=== PATIENT | female | born 1940 | race Caucasian/White ===

== ENCOUNTER 2023-01-09 00:56 | Emergency (ER) | payer MEDICARE, SELFPAY ==
[2023-01-09] VITALS (55 sets, daily range): BP systolic 128–176; BP diastolic 76–108; PULSE 78–106; RESP 15–39; TEMP 36.7–38.3; O2SAT 93–96
--- NOTE | 2023-01-09 01:00 | ECG_ITS ---
The [facility] Test Date: 2023-01-09 Pat Name: BERNICE COOMBS Department: Room: - Gender: Female Student Success Counselor: : 1940 Requested By: [id number] Order Number: [id number] Reading MD: PRANEETH MCGRAW Measurements Intervals [place] Rate: 93 P: 55 [place]: 154 QRS: 32 QRSD: 142 T: 116 QT: 400 QTc: 451 Interpretive Statements 1100 Sinus rhythm 2550 Left bundle branch block 6120 Possible right atrial enlargement 6230 Left atrial enlargement 9150 abnormal ECG No previous ECG available for comparison Electronically Signed On 01-09-2023 7:07:56 EDT by PRANEETH MCGRAW
--- NOTE | 2023-01-09 01:14 | ED.WEAKNESS1 ---
HPI - Weakness General Chief complaint: Altered Mental Status Stated complaint: FEVER Time Seen by Provider: 01/09/23 01:00 Mode of arrival: ambulance Limitations: altered mental status History of Present Illness HPI Narrative: patient lives at home with her son. Tonight she was not able to get off the commode without help and then she was too weak to walk. No vomiting or diarrhea. Found to have low grade fever. No complaint of dyspnea or chest pain. Per Squad personnel they were informed that she is noncompliant with her home meds Complaint: Reports generalized weakness Related Data Allergies Allergy/AdvReac Type Severity Reaction Status Date / Time atorvastatin [From Lipitor] Allergy Unknown Verified 01/09/23 01:38 azithromycin [From Zithromax] Allergy Unknown Verified 01/09/23 01:38 Penicillins Allergy Unknown Verified 01/09/23 01:38 rosuvastatin [From Crestor] Allergy Unknown Verified 01/09/23 01:38 simvastatin [From Zocor] Allergy Unknown Verified 01/09/23 01:38 Sulfa (Sulfonamide Allergy Unknown Verified 01/09/23 01:38 Antibiotics) iv dye Allergy Unknown Uncoded 01/09/23 01:38 Review of Systems ROS Status of ROS 10 or more systems reviewed and unremarkable except as noted in history and below PFSH PFS Social History Smoking status: Never smoker Exam Constitutional Vital Signs, click to edit/add: Last Vital Signs Temp 100.9 F H 01/09/23 00:58 Pulse 96 H 01/09/23 03:10 Resp 27 H 01/09/23 03:10 BP 134/84 01/09/23 03:00 Pulse Ox 94 L 01/09/23 03:10 O2 Del Method Room Air 01/09/23 00:58 Common normals: no apparent distress, oriented x3 and alert Eye Common normals: EOMs intact bilaterally and conjunctivae normal Respiratory Common normals: normal respiratory effort, no retractions, no use of accessory muscles and clear to auscultation bilaterally Cardio Common normals: regular rate, regular rhythm, S1 normal heart sound and S2 normal heart sound GI Common normals: Normal to inspection, nondistended, normoactive bowel sounds present, soft to palpation and non-tender Extremity Common normals: normal to inspection Neuro Common normals: oriented x3, moves all extremities and no focal motor deficits Psych Appearance: grossly normal Course Vital Signs Vital signs: Vital Signs Temperature 100.9 F H 01/09/23 00:58 Pulse Rate 95 H 01/09/23 00:58 Respiratory Rate 25 H 01/09/23 00:58 Pulse Oximetry 93 L 01/09/23 00:58 Oxygen Delivery Method Room Air 01/09/23 00:58 Temperature 100.9 F H 01/09/23 00:58 Pulse Rate 96 H 01/09/23 03:10 Respiratory Rate 27 H 01/09/23 03:10 Blood Pressure 134/84 01/09/23 03:00 Pulse Oximetry 94 L 01/09/23 03:10 Oxygen Delivery Method Room Air 01/09/23 00:58 MDM - Weakness MDM Narrative Medical decision making narrative: patient resides at home with her son. Brought to the ER today for weakness. needed help getting off the commode and then was too weak to walk. Has a cough but is not short of breath. Has low grade fever. No focal weakness of her extremities or facial droop. EKG with NSR and LBBB. labs with mild elevation of troponin. COVID19 and Influenza are neg. CT chest performed as cxray with findings of possible mass. CT without acute cardiopulmonary findings. Did note nonspecific hypodense thyroid lesion that can be further evaluated with ultrasound. No clear etiology for her gen. weakness. She is also in need of cardiac consultation given her elevated Troponins Discussed with hospitalist at [facility] and patient is accepted in transfer Lab Data Labs: Lab Results 01/09/23 01/09/23 01/09/23 Range/Units 01:00 01:10 02:13 WBC 6.7 (4.0-11.0) 10^3/uL RBC 4.74 (4.20-5.40) 10^6/uL Hgb 13.8 (12.0-16.0) g/dL Hct 43.2 (36.0-48.0) % MCV 91.1 (81.0-99.0) fL MCH 29.1 (26.7-34.0) pg MCHC 31.9 (29.9-35.2) g/dL RDW 14.4 (11.0-15.0) % Plt Count 246 (150-450) 10^3/uL MPV 10.3 (9.5-13.5) fL Neut % (Auto) 80.7 H (43.0-75.0) % Lymph % (Auto) 9.6 L (20.5-60.0) % [place] % (Auto) 8.7 (1.7-12.0) % Eos % (Auto) 0.0 L (0.9-7.0) % Baso % (Auto) 0.6 (0.2-2.0) % Neut # (Auto) 5.4 (1.4-6.5) 10^3/uL Lymph # (Auto) 0.6 L (1.2-3.8) 10^3/uL Fleming # (Auto) 0.6 (0.3-0.8) 10^3/uL Eos # (Auto) 0.0 (0.0-0.7) 10^3/uL Baso # (Auto) 0.0 (0.0-0.1) 10^3/uL Abs Immat Gran (auto) 0.03 (0.00-0.03) 10^3/uL Imm/Tot Granulo (auto) 0.4 (0.0-0.5) % Sodium 138 (136-145) mmol/L Potassium 3.6 (3.5-5.1) mmol/L Chloride 100 (98-107) mmol/L Carbon Dioxide 27.4 (21.0-32.0) mmol/L Anion Gap 14.2 BUN 14.0 (7.0-18.0) mg/dL Creatinine 1.01 (0.55-1.02) mg/dL Est GFR ( Amer) >60 (>=60) Est GFR (Non-Af Amer) 52 L (>=60) BUN/Creatinine Ratio 13.9 Glucose 106 (74-106) mg/dL Lactate 1.8 (0.4-2.0) mmol/L Calcium 8.3 L (8.5-10.1) mg/dL Troponin I High Sens 59.0 H* (4.0-51.3) pg/mL Urine Color Lt. yellow (YELLOW) Urine Clarity Clear (CLEAR) Urine pH 6.5 (5.0-9.0) Ur Specific [place] 1.020 (1.005-1.025) Urine Protein 30 A (NEG/TRACE) mg/dL Urine Glucose (UA) Negative (NEGATIVE) mg/dL Urine Ketones 15 A (NEGATIVE) mg/dL Urine Occult Blood Moderate A (NEGATIVE) Urine Nitrite Negative (NEGATIVE) Urine Bilirubin Negative (NEGATIVE) Urine Urobilinogen 1.0 (0.2-1.0) EU/dL Ur Leukocyte Esterase Negative (NEGATIVE) Urine RBC 5-10 A (0-2) #/HPF Urine WBC 0-2 A (NONE SEEN) #/HPF Ur Squamous Epith Cells Few A (NONE/RARE) #/LPF Urine Crystals None seen (None Seen) #/HPF Urine Bacteria None seen (NONE SEEN) #/HPF Urine Casts None seen (NONE SEEN) #/LPF Urine Mucus Small A (NONE SEEN) Ur Culture Indicated? No SARS-CoV-2 (PCR) (NEGATIVE) Influenza Type A Ag Negative Influenza Type B Ag Negative 01/09/23 01/09/23 Range/Units 02:53 04:05 WBC (4.0-11.0) 10^3/uL RBC (4.20-5.40) 10^6/uL Hgb (12.0-16.0) g/dL Hct (36.0-48.0) % MCV (81.0-99.0) fL MCH (26.7-34.0) pg MCHC (29.9-35.2) g/dL RDW (11.0-15.0) % Plt Count (150-450) 10^3/uL MPV (9.5-13.5) fL Neut % (Auto) (43.0-75.0) % Lymph % (Auto) (20.5-60.0) % Fleming % (Auto) (1.7-12.0) % Eos % (Auto) (0.9-7.0) % Baso % (Auto) (0.2-2.0) % Neut # (Auto) (1.4-6.5) 10^3/uL Lymph # (Auto) (1.2-3.8) 10^3/uL Fleming # (Auto) (0.3-0.8) 10^3/uL Eos # (Auto) (0.0-0.7) 10^3/uL Baso # (Auto) (0.0-0.1) 10^3/uL Abs Immat Gran (auto) (0.00-0.03) 10^3/uL Imm/Tot Granulo (auto) (0.0-0.5) % Sodium (136-145) mmol/L Potassium (3.5-5.1) mmol/L Chloride (98-107) mmol/L Carbon Dioxide (21.0-32.0) mmol/L Anion Gap BUN (7.0-18.0) mg/dL Creatinine (0.55-1.02) mg/dL Est GFR ( Amer) (>=60) Est GFR (Non-Af Amer) (>=60) BUN/Creatinine Ratio Glucose (74-106) mg/dL Lactate (0.4-2.0) mmol/L Calcium (8.5-10.1) mg/dL Troponin I High Sens 60.0 H* (4.0-51.3) pg/mL Urine Color (YELLOW) Urine Clarity (CLEAR) Urine pH (5.0-9.0) Ur Specific [place] (1.005-1.025) Urine Protein (NEG/TRACE) mg/dL Urine Glucose (UA) (NEGATIVE) mg/dL Urine Ketones (NEGATIVE) mg/dL Urine Occult Blood (NEGATIVE) Urine Nitrite (NEGATIVE) Urine Bilirubin (NEGATIVE) Urine Urobilinogen (0.2-1.0) EU/dL Ur Leukocyte Esterase (NEGATIVE) Urine RBC (0-2) #/HPF Urine WBC (NONE SEEN) #/HPF Ur Squamous Epith Cells (NONE/RARE) #/LPF Urine Crystals (None Seen) #/HPF Urine Bacteria (NONE SEEN) #/HPF Urine Casts (NONE SEEN) #/LPF Urine Mucus (NONE SEEN) Ur Culture Indicated? SARS-CoV-2 (PCR) Negative (NEGATIVE) Influenza Type A Ag Influenza Type B Ag Discharge Plan Discharge Chief Complaint: Altered Mental Status Clinical Impression: Generalized weakness, Elevated troponin, Fever Referrals: Physician,Non-Staff, MD [Primary Care Provider] - 1 week
--- NOTE | 2023-01-09 01:16 | XR_ITS ---
The [address] [address] Patient Name: BERNICE COOMBS MRN: [id number] date: 1940 Sex: F Assigned Patient Location: ED.MAIN Current Patient Location: ED.MAIN Accession/Order Number: [id number] Exam Date: 01/09/2023 01:30 Report Date: 01/09/2023 01:59 At the request of: GLYNN YING Procedure: XR chest 1V EXAMINATION:XR chest 1V INDICATION:weakness COMPARISON:None TECHNIQUE:A single frontal view of the chest is submitted. FINDINGS: The cardiac silhouette is enlarged. There is accentuation of the mediastinal structures due to rotation of the chest. There is no obvious vascular congestion. There is nonspecific nodularity in the medial left lower lung field. A neoplastic process cannot entirely be excluded. There is no costophrenic angle blunting. XR/XR chest 1V IMPRESSION: Nonspecific nodularity in the medial left lower lung field. This could be better characterized with CT scan to exclude a neoplastic process. Electronically authenticated by: QUAN NICHOEL Date: 01/09/2023 01:59
[2023-01-09 01:27] LABS: Bilirubin Urine NEGATIVE (NEGATIVE); Blood Urine MODERATE (NEGATIVE); Clarity Urine CLEAR (CLEAR); Color Urine LT. YELLOW (YELLOW); Glucose Urine UA NEGATIVE (NEGATIVE); Ketones Urine 15 mg/dL (NEGATIVE); Leukocyte Esterase Urine NEGATIVE (NEGATIVE); Nitrite Urine NEGATIVE (NEGATIVE); Protein Urine 30 mg/dL (NEG/TRACE); pH Urine 6.5 (5.0-9.0)
[2023-01-09 01:38] LABS: Basophils Percent Auto 0.6 % (0.2-2.0); Hematocrit 43.2 % (36.0-48.0); Hemoglobin 13.8 g/dL (12.0-16.0); Immature Granulocytes Abs Auto 0.03 10^3/uL (0.00-0.03); Immature Granulocytes Pct Auto 0.4 % (0.0-0.5); Lymphocytes Absolute Auto 0.6 10^3/uL (1.2-3.8); Lymphocytes Percent Auto 9.6 % (20.5-60.0); Mean Corpuscular HGB Conc 31.9 g/dL (29.9-35.2); Mean Corpuscular Hemoglobin 29.1 pg (26.7-34.0); Mean Corpuscular Volume 91.1 fL (81.0-99.0); Mean Platelet Volume 10.3 fL (9.5-13.5); Monocytes Absolute Auto 0.6 10^3/uL (0.3-0.8); Monocytes Percent Auto 8.7 % (1.7-12.0); Neutrophils Absolute Auto 5.4 10^3/uL (1.4-6.5); Neutrophils Percent Auto 80.7 % (43.0-75.0); Platelet Count 246 10^3/uL (150-450); Red Blood Count 4.74 10^6/uL (4.20-5.40); Red Cell Distribution Width 14.4 % (11.0-15.0); White Blood Count 6.7 10^3/uL (4.0-11.0)
[2023-01-09 01:50] LABS: Urine Microscopic Indicated YES
[2023-01-09 01:54] LABS: Lactate/Lactic Acid 1.8 mmol/L (0.4-2.0)
[2023-01-09] MEDS: 0.9 % SODIUM CHLORIDE 1,000 ML 100 ML IV (01:58)
[2023-01-09 02:01] LABS: Bacteria Urine NONE SEEN #/HPF (NONE SEEN); Cast Seen? NONE SEEN #/LPF (NONE SEEN); Crystals Seen? None Seen #/HPF (None Seen); Mucus Urine SMALL (NONE SEEN); Squamous Epithelial Cell Urine FEW #/LPF (NONE/RARE); Urine Culture Indicated NO; WBC Urine 0-2 #/HPF (NONE SEEN)
[2023-01-09 02:14] LABS: Anion Gap 14.2; BUN Creatinine Ratio 13.9; Calcium 8.3 mg/dL (8.5-10.1); Carbon Dioxide 27.4 mmol/L (21.0-32.0); Chloride 100 mmol/L (98-107); Estimated GFR (African America >60 (>=60); Estimated GFR (Non-African Ame 52 (>=60); Glucose 106 mg/dL (74-106); Potassium 3.6 mmol/L (3.5-5.1); Sodium 138 mmol/L (136-145)
[2023-01-09 02:16] LABS: Adenovirus NOT DETECTED (NOT DETECTE); Bordetella parapertussis NOT DETECTED (NOT DETECTE); Coronavirus 229E NOT DETECTED (NOT DETECTE); Coronavirus HKU1 NOT DETECTED (NOT DETECTE); Coronavirus NL63 NOT DETECTED (NOT DETECTE); Coronavirus OC43 NOT DETECTED (NOT DETECTE); Human Metapneumovirus NOT DETECTED (NOT DETECTE); Human Rhinovirus/Enterovirus NOT DETECTED (NOT DETECTE); Influenza A NOT DETECTED (NOT DETECTE); Influenza B NOT DETECTED (NOT DETECTE); Mycoplasma pneumoniae NOT DETECTED (NOT DETECTE); Parainfluenza Virus 1 NOT DETECTED (NOT DETECTE); Parainfluenza Virus 2 NOT DETECTED (NOT DETECTE); Parainfluenza Virus 3 NOT DETECTED (NOT DETECTE); Respiratory Syncytial Virus NOT DETECTED (NOT DETECTE); SARS-CoV-2 NOT DETECTED (NOT DETECTE)
[2023-01-09 03:04] LABS: Influenza Virus A Antigen Negative; Influenza Virus B Antigen Negative; Internal Control Within Normal Limits
--- NOTE | 2023-01-09 03:13 | CT_ITS ---
The [address] [address] Patient Name: BERNICE COOMBS MRN: [id number] date: 1940 Sex: F Assigned Patient Location: ER Current Patient Location: Accession/Order Number: [id number] Exam Date: 01/09/2023 03:54 Report Date: 01/09/2023 05:12 At the request of: GLYNN YING Procedure: CT chest wo con EXAM: CT chest wo con HISTORY: lung mass . Confusion. Fever. Hypertension. COMPARISON: Chest x-ray, 01/09/2023. TECHNIQUE: Nonenhanced CT imaging the chest was performed with sagittal and coronal reconstructions. Dose reduction techniques were achieved by using automated exposure control and/or adjustment of mA and/or kV according to patient size and/or use of iterative reconstruction technique. FINDINGS: The exam is limited by the lack of contrast. The heart is mildly enlarged. There appears be a coronary artery stent in the LAD. Calcifications of the mitral valve annulus are noted. No pericardial effusion is seen. There are fairly prominent calcifications in the otherwise grossly unremarkable thoracic aorta and arch vessels. The thyroid gland is heterogeneous. There is a nonspecific 1.1 cm hypodense lesion in the posterior right thyroid lobe on image 14 of series 3. A 1.8 cm ovoid lesion cannot be excluded in the left thyroid lobe on image 16. No thoracic adenopathy is seen. Motion artifact degrades the lungs. There is mild dependent atelectasis in the posterior lower lobes. No pulmonary edema, acute infiltrate, pleural fluid or pneumothorax is seen. There is a 5 mm noncalcified nodule in the anterior segment of the right upper lobe on image 34 series 3. Mild basilar linear atelectasis or fibrotic scarring is noted. There is a fat-containing herniation of the medial left diaphragm. There is a 0.8 cm anterior subcapsular cyst in the medial left hepatic segment. The liver is otherwise unremarkable. Gas containing stones fill the gallbladder lumen with no CT findings of cholecystitis. Prominent atherosclerotic calcifications are noted. The nonenhanced upper abdomen is otherwise unremarkable. There is a mild upper thoracic levoscoliosis. Prominent degenerative changes are seen in the glenohumeral joints. No acute osseous abnormality or suspicious bony lesion is seen. CT/CT chest wo con IMPRESSION: 1. No acute cardiopulmonary findings. 2. Noncalcified 5 mm right upper lobe pulmonary nodule, nonspecific. Follow-up is recommended per Fleischner Society guidelines, as outlined below. 3. Nonspecific hypodense thyroid lobe lesions. Elective thyroid ultrasound could further evaluate. 4. Cholelithiasis. Fleischner Society guidelines for follow-up and management of solitary pulmonary nodules incidentally discovered in patients 35 years old or older: Nodule size <6 mm Low-risk patient: No routine follow-up. High-risk patient: Optional CT at 12 months. Nodules < 6 mm do not require routine follow-up, but certain patients at high risk with suspicious nodule morphology, upper lobe location, or both may warrant a 12 month follow-up. Low risk patients include individuals with minimal or absent history of smoking and other known risk factors. High risk patients include individuals with a history of smoking or other known risk factors. Radiology 2017. Feb 23:711120. DOI: 10.1148/radiol.[id number]. Electronically authenticated by: JENIFER SUGGS Date: 01/09/2023 05:12
[2023-01-09 03:14] LABS: SARS-CoV-2 Ag NEGATIVE (NEGATIVE)
--- NOTE | 2023-01-09 04:56 | PC.NURSE ---
Patient was observed attempting to climb out of her ER cot. She had taken off her gown and was sitting at the end of the cot. Her IV was stretched and her beckett was being pulled. She did not remember being unable to walk earlier in the night. She said she wanted to sneak out before one of the nurses caught her. She was able to be redirected and laid back down. She was given a book to read. She complains of neck pain at this time, Dr Joseph is notified.
[2023-01-09] MEDS: ACETAMINOPHEN 500 MG TABLET 1000 MG PO (06:20)
[2023-01-09 08:40] LABS: Parainfluenza Virus 4 DETECTED (NOT DETECTE)
== END 2023-01-09 08:46 | disposition short-term general hospital (02) ==
PROVIDERS: Emergency Provider Internal Medicine
DX: R53.1 Weakness (principal); R79.89 Other specified abnormal findings of blood chemistry; R50.9 Fever, unspecified; I44.7 Left bundle-branch block, unspecified; Z20.822 Contact with and (suspected) exposure to COVID-19
CPT/HCPCS: 0202U; 36415; 71045; 71250; 80048; 81001; 83605; 84484; 85025; 87040; 87635; 87798; 87804; 87811; 93005; 99285

== ENCOUNTER 2023-07-28 10:35 | Emergency (ER) | payer MEDICARE, SELFPAY ==
[2023-07-28 10:37] VITALS: BP 182/100; PULSE 92; TEMP 36.8; O2SAT 96; BMI 29.5
[2023-07-28 11:49] LABS: Bilirubin Urine NEGATIVE (NEGATIVE); Blood Urine TRACE-I (NEGATIVE); Clarity Urine CLEAR (CLEAR); Color Urine LT. YELLOW (YELLOW); Glucose Urine UA NEGATIVE (NEGATIVE); Ketones Urine NEGATIVE (NEGATIVE); Leukocyte Esterase Urine MODERATE (NEGATIVE); Nitrite Urine POSITIVE (NEGATIVE); Protein Urine TRACE mg/dL (NEG/TRACE)
--- NOTE | 2023-07-28 12:18 | ED.GENADUL1 ---
HPI HPI - General Adult General Chief complaint: Urogenital-Female Stated complaint: FREQUENT URINATION Time Seen by Provider: 07/28/23 10:46 Source: patient and family Mode of arrival: walk-in Limitations: no limitations History of Present Illness HPI narrative: Patient is a 81-year-old female who is presenting to the ER with many months of urinary frequency, urgency, no burning. Patient was prescribed Keflex back in January. Patient said that she had side effects with Keflex and did not want to take the medication anymore. Patient also has 2 blood pressure medications of Coreg and lisinopril. Patient takes all her medications at nighttime. Patient on the pill bottle of the Coreg as directions to take the pill at breakfast and at dinner, patient says that she does not like those directions, she only takes 1 pill at dinner. Patient's PCP is Dr. Erickson. All systems are negative except as noted/marked. All systems reviewed and otherwise negative. Nurses note and vital signs reviewed and patient is not hypoxic. General: The patient appears well and in no apparent distress. Patient is resting comfortably on cart. Patient is not toxic, lethargic, or listless Skin: Warm, dry, no pallor noted. There is no rash noted. No petechiae, purpura. Head: Normocephalic, atraumatic Eye: Normal conjunctiva, no drainage, EOMI. PERRL Ears, Nose, Mouth, and Throat: oral mucosa is moist. Nares patent. Mouth without vesicles. Cardiovascular: Regular Rate and Rhythm, no murmur, gallop, rub Respiratory: Patient is in no distress, no accessory muscle use, lungs are clear to auscultation, no wheezing, rales or rhonchi Back: non-tender, no CVA tenderness bilaterally to percussion. No CT LS midline pain GI: no tenderness to palpation, no masses appreciated. No rebound, guarding, or rigidity noted. No distention Musculoskeletal: Patient has full range of motion of all of the extremities, no motor, sensory, or focal neurological deficits Neurological: A&O x4, normal speech Psychiatric: Cooperative Related Data Home Medications ?Medication ?Instructions ?Recorded ?Confirmed aspirin 81 mg tablet,delayed 81 mg PO DAILY 07/28/23 07/28/23 release carvedilol 12.5 mg tablet 6.25 mg PO .qhs 07/28/23 07/28/23 estradiol 0.01% (0.1 mg/gram) vaginal 07/28/23 vaginal cream lisinopril 5 mg tablet 5 mg PO DAILY 07/28/23 07/28/23 Previous Rx's ?Medication ?Instructions ?Recorded ciprofloxacin HCl 500 mg tablet 500 mg PO BID 7 days #14 tabs 07/28/23 Allergies Allergy/AdvReac Type Severity Reaction Status Date / Time atorvastatin [From Lipitor] Allergy Unknown Verified 01/09/23 01:38 azithromycin [From Zithromax] Allergy Unknown Verified 01/09/23 01:38 Penicillins Allergy Unknown Verified 01/09/23 01:38 rosuvastatin [From Crestor] Allergy Unknown Verified 01/09/23 01:38 simvastatin [From Zocor] Allergy Unknown Verified 01/09/23 01:38 Sulfa (Sulfonamide Allergy Unknown Verified 01/09/23 01:38 Antibiotics) iv dye Allergy Unknown Uncoded 01/09/23 01:38 Opioid HPI Opioid Management Most Recent Opioid Data: No Data to Display PFSH PFSH Social History Smoking status: Never smoker Exam Constitutional Vital Signs, click to edit/add: Last Vital Signs Temp 98.2 F 07/28/23 10:37 Pulse 92 H 07/28/23 10:37 Resp 18 07/28/23 10:37 BP 182/100 H 07/28/23 10:37 Pulse Ox 96 07/28/23 10:37 Course Vital Signs Vital signs: Vital Signs Temperature 98.2 F 07/28/23 10:37 Pulse Rate 92 H 07/28/23 10:37 Respiratory Rate 18 07/28/23 10:37 Blood Pressure 182/100 H 07/28/23 10:37 Pulse Oximetry 96 07/28/23 10:37 Temperature 98.2 F 07/28/23 10:37 Pulse Rate 92 H 07/28/23 10:37 Respiratory Rate 18 07/28/23 10:37 Blood Pressure 182/100 H 07/28/23 10:37 Pulse Oximetry 96 07/28/23 10:37 Medical Decision Making MDM Narrative Medical decision making narrative: Patient does have evidence of urinary tract infection. Patient was placed on Cipro twice a day for 7 days secondary to urinary tract infection. Patient never had a urinary tract infection treated appropriately from January of last year. Patient was placed on Cipro. Son at bedside. Patient and son also had education again that her blood pressure medication states that she should be taking twice a day, and she is only taking 1 at nighttime. Patient states that is what she wants to do. Patient will follow-up with PCP. Patient has been walking with no difficulty. Patient has no significant signs of pyonephritis, sepsis, or any other acute complaints made. No questions at discharge. Lab Data Labs: Lab Results 07/28/23 Range/Units 11:33 Urine Color Lt. yellow (YELLOW) Urine Clarity Clear (CLEAR) Urine pH 6.0 (5.0-9.0) Ur Specific [place] 1.020 (1.005-1.025) Urine Protein Trace (NEG/TRACE) mg/dL Urine Glucose (UA) Negative (NEGATIVE) mg/dL Urine Ketones Negative (NEGATIVE) mg/dL Urine Occult Blood Trace-i (NEGATIVE) Urine Nitrite Positive A (NEGATIVE) Urine Bilirubin Negative (NEGATIVE) Urine Urobilinogen 1.0 (0.2-1.0) EU/dL Ur Leukocyte Esterase Moderate A (NEGATIVE) Urine RBC 0-2 (0-2) #/HPF Urine WBC >100 A (NONE SEEN) #/HPF Ur Squamous Epith Cells Many A (NONE/RARE) #/LPF Urine Crystals None seen (None Seen) #/HPF Urine Bacteria Large A (NONE SEEN) #/HPF Urine Casts None seen (NONE SEEN) #/LPF Urine Mucus None seen (NONE SEEN) Discharge Plan Discharge Stand Alone Forms: Portal Instructions Chief Complaint: Urogenital-Female Clinical Impression: Urinary tract infection Patient Disposition: Home, Self-Care Time of Disposition Decision: 13:04 Condition: Fair Prescriptions / Home Meds: New ciprofloxacin HCl 500 mg tablet 500 mg PO BID 7 Days Qty: 14 0RF No Action carvedilol 12.5 mg tablet 6.25 mg PO .qhs aspirin 81 mg tablet,delayed release (DR/EC) 81 mg PO DAILY estradiol 0.01 % (0.1 mg/gram) cream VAGINAL lisinopril 5 mg tablet 5 mg PO DAILY Print Language: Swedish Instructions: Urinary Tract Infection in Older Adults (ED) Additional Instructions: Increase fluids at home, water cranberry juice. You must take and finish your antibiotics as prescribed for your urinary tract infection will turn into a kidney infection, possibly sepsis, and you could become very sick. Referrals: Physician,Non-Staff, [Primary Care Provider] - 1 week Discharge Date/Time: 07/28/23 13:18
[2023-07-28 12:28] LABS: WBC Urine >100 #/HPF (NONE SEEN)
[2023-07-28 12:29] LABS: Bacteria Urine LARGE #/HPF (NONE SEEN); Mucus Urine NONE SEEN (NONE SEEN); RBC Urine 0-2 #/HPF (0-2); Squamous Epithelial Cell Urine MANY #/LPF (NONE/RARE)
[2023-07-28 12:30] LABS: Cast Seen? NONE SEEN #/LPF (NONE SEEN); Crystals Seen? None Seen #/HPF (None Seen)
== END 2023-07-28 13:18 | disposition home or self-care (01) ==
PROVIDERS: Emergency Provider Emergency Medicine
DX: N39.0 Urinary tract infection, site not specified (principal); Z79.899 Other long term (current) drug therapy; Z79.82 Long term (current) use of aspirin
CPT/HCPCS: 81001; 99283